=== PATIENT | male | born 1995 | race Caucasian/White ===

== ENCOUNTER → 2022-07-18 11:41 | Outpatient (BNVA) | payer SELFPAY | PROVIDERS: Family Provider Family Medicine; PCP Family Medicine; Visit Provider Family Medicine | DX: F41.1 Generalized anxiety disorder (principal); F41.0 Panic disorder [episodic paroxysmal anxiety] | CPT/HCPCS: 80053; 85025 ==

== ENCOUNTER → 2024-07-31 16:09 | Outpatient (BNVA) | payer SELFPAY | PROVIDERS: Family Provider Family Medicine; PCP Family Medicine; Visit Provider Emergency Medicine | DX: R50.9 Fever, unspecified (principal) | CPT/HCPCS: 87400 ==